=== PATIENT | female | born 1985 | race African-American/Black ===

== ENCOUNTER 2018-04-16 17:47 | Emergency (ER) | payer MEDICAID ==
[~2018-04-16] VITALS: Ht 152.4 cm; Wt 71.0 kg
[2018-04-16] MEDS ORDERED: IBUPROFEN 600MG TABLET PO ONE (23:30)
[2018-04-16] MEDS ORDERED: SODIUM CHLORIDE 0.9% 1,000 ML IV ONE (23:45)
[2018-04-17] MEDS ORDERED: ACETAMINOPHEN 325MG TABLET PO ONE (00:15)
[2018-04-17 00:20] LABS: BASOPHILS % 0.2 % (0.0-2.0); EOSINOPHILS % 0.1 % (0.0-5.0); HEMATOCRIT. 35.3 % (36.0-48.0); HEMOGLOBIN. 11.6 g/dL (12.0-16.0); MEAN CORPUSCULAR HEMOGLOBIN 28.3 pg (28.0-32.0); MEAN CORPUSCULAR VOLUME 86.2 fL (81.0-99.0); MEAN PLATELET VOLUME 8.8 fl (7.4-10.4); MONOCYTES % 12.9 % (2.0-8.0); NEUTROPHILS % 79.8 % (40.0-76.0); PLATELET 342 x1000/uL (130-400); RED CELL DISTRIBUTION WIDTH 14.8 % (11.6-14.6)
[2018-04-17 00:25] LABS: CHLORIDE 105 mEq/L (98-107)
[2018-04-17] MEDS ORDERED: DEXAMETHASONE 10 MG/ML VIAL IM ONE (01:45)
[2018-04-17] MEDS ORDERED: POTASSIUM CHLORIDE 20MEQ TABLET SR PO ONE (03:00)
[2018-04-17 03:14] VITALS: BP 104/65
== END 2018-04-17 03:46 | disposition home or self-care (01) ==
LOC: ER 21:24
DX: J02.9 Acute pharyngitis, unspecified (principal); J45.909 Unspecified asthma, uncomplicated
CPT/HCPCS: 36415; 80048; 81025; 83605; 85025; 87070; 87430; 93005; 96372; 99284; J1100; J7030